=== PATIENT | female | born 1965 | race Caucasian/White ===

== ENCOUNTER 2022-01-24 14:55 | Day surgery (SDC) | payer OTHER, SELFPAY ==
[2022-01-24] VITALS (8 sets, daily range): BP systolic 124–148; BP diastolic 86–98; PULSE 62–79; RESP 14–26; TEMP 36.2–37.1; O2SAT 93–100; BMI 24.0
[2022-01-24 16:03] LABS: COVID19 -Nasal RAPID Negative (Negative)
--- NOTE | 2022-01-24 16:20 | PM.PREOP ---
Pre-operative Note COVID-19 COVID-19 status: Negative Result date/Date tested (Pos, Neg/Pending): 01/23/22 Criteria for continued procedure: Expected advancement of disease process, Possibility delay results in more complex future surgery or treatment, Increased loss of function, Continuing or worsening of significant or severe pain, Deterioration of the patient's condition or overall health and Delay expected to result in less-positive ultimate med/surg outcome Interval Note History & Physical reviewed/Exam performed by Physician: Yes Changes to H&P: No
[2022-01-24] MEDS: LACTATED RINGERS 1,000 ML 42 ML IV (16:23)
--- NOTE | 2022-01-24 16:27 | SUR.PREOP ---
01/24/22 -16:15-patient here for left elbow surgery. Reported ate breakfast-granola/half bannana/fruit and milk drink at 10:30am today. coat checker, Yessica notified & to clarify surgical time. Reported back after spoke with Anesthesia- will continue on with surgery at planned 1645 maria. 1630-Dr Ken here to see patient.
[2022-01-24] MEDS: CEFAZOLIN 2 GM/100 ML PREMIX 100 ML IV (17:00)
--- NOTE | 2022-01-24 17:00 | SUR.PREOP ---
01/24/[id number]-pylctu,Nadeem, called, aware MD signed /sent rx to [facility] in [facility] so that he can get it filled/picked up prior to discharge tonight. Hinojosa paper work in chart, but needs to be filled out-RN post op will complete. Updated patient just went into OR, maybe 2 hour surgery.
--- NOTE | 2022-01-24 17:36 | SUR.OPER ---
Lateral on a stewart bag, head on pillow, gel axillary roll in place, bottom leg bent with gel pad under knee to foot, upper leg straight and supported with pillows. Upper arm supported by pillows and secured over bottom arm to padded arm board. Safety belt at hip, tape over blanket lower legs.
[2022-01-24] MEDS: ACETAMINOPHEN IV 1,000 MG/100 ML VIAL 400 MG IV (17:42)
[2022-01-24] MEDS: BUPIVACAINE 0.5% W/ EPI (PF) 30 ML VIAL INJ (17:44)
--- NOTE | 2022-01-24 18:57 | PM.OP.1 ---
Operative Date/Time/Diagnoses Date of procedure: 01/24/22 Time of procedure: 16:40 Pre-op diagnosis: Left ulna Grade I open olecranon fracture Post-op diagnosis: same Procedure & Clinicians Procedure: 1. Open reduction internal fixation of left olecranon fracture with plate and screws 2. Irrigation and debridement of skin muscle and bone Same procedure as scheduled: Yes Indications: Ms. Naidu is a 56 yo F with open olecranon fracture when she was hiking in [facility]. She presented to our office this am requesting to be evaluated and treated for her injury. Her x-ray shows a comminuted displaced olecranon fracture over the left elbow. She was seen in the clinic and was found a have a non-contaminated wound with mild venous bleeding. After informed consent was obtained, patient was taken to the operating room emergently for her open elbow fracture since yesterday. Patient had I&D in the [facility] ER and was given antibiotics. Surgeon: Charan Ashby Vice President Business & Corporate Development: Akiko Segal Click Yes if Unassisted: No Anesthesia Type: General Operative Notes Closure Type: primary Specimen(s): none sent Prosthetic devices, grafts, tissues, transplants, or devices: Acuna and Nephew Olecranon locking plate, two locking screws, three non-locking screws Estimated Blood Loss (mL): 10 Blood products transfused: none Tourniquet time (min): 60 Procedure in detail: After patient was consented of risks and benefits of surgery, informed consent was obtained and placed in the chart. Patient was taken to the operating room. Prophylactic antibiotic was given less than half our prior to skin incision. Patient was placed into a lateral position with a stewart bag. After the positioning was confirmed patient is being bag was inflated. Patient had a axillary roll was placed underneath her arm on the right side. A tourniquet was placed on patient's left upper arm. Patient's left arm was prepped and draped in sterile fashion. Time-out was performed at this time. Patient's left arm was exsanguinated using the Esmarch and the tourniquet was inflated to 250 mm Hg. Marking pen was used to dylan out a 2 in incision over the left olecranon. The incision was made from proximal to the olecranon to distal down the arm away from the ulnar aspect of the elbow. A curved incision centered over patient's traumatic wound was made from distal humerus to proximal diaphysis of the left ulna. The fracture site was immediately visualized. There was significant amount of hematoma inside the soft tissue and the fracture site. Loose more fragments of bone and hematoma was debrided using copious amount of irrigation and small pickups. There are multiple areas of cartilaginous damage from the injury over the distal humerus without involvement of bony portion of the humerus. Several small fragments of bone inside the elbow joint was removed using small pituitary. The fracture site was cleaned using a small curette and irrigation. A 2 mm drill was used to drill on the distal portion of the ulna diaphysis. A small [id number] reduction clamp was used to reduce the fracture. Patient's proximal olecranon fracture fragment was found to be comminuted with 2 major pieces along with several small fragments that was not able to be stabilized individually. The 2 major piece was stabilized after reducing with [id number] clamp and held in place using the clamp. X-ray was taken to confirm the position of the plate and the reduced fracture. The fracture was well reduced with congruent elbow joint with minimum displacement or step-off at the elbow joint. The plate is a well fitted olecranon plate. A K-wire was used to stabilize the plate to patient's proximal fracture piece. A distal plate hole was drilled in off center fashion in order to compress the fracture and this was completed without any difficulty. After this nonlocking fully-threaded screw was placed into the diaphysis of the ulna with compression, 2 proximal locking screws were placed from the proximal portion of the plate after drilling and measuring with depth gauge. 45 and 48 mm locking screw was used. Two additional distal nonlocking screw was drilled and measured using a depth gauge. The wound measured 18 and 21 mm in length. After all the hardware was placed the reduction clamp and the K-wire was removed from the bone. The elbow was taken through range of motion which had full range of motion without any mechanical impedance. AP and lateral x-ray was taken of the left elbow which showed well placed hardware with well reduced fracture without displacement. The elbow joint was well reduced and stabilized using the hardware placed. At this time the wound was irrigated again copiously with sterile normal saline. The wound was then closed with 2-0 Vicryl and 3-0 nylon sutures. Sterile dressing was placed on patient's left arm. Tourniquet was deflated at this time. A posterior long-arm splint was placed on patient's arm in order to stabilize her soft tissue to allow proper healing. Additional stabilization is also provided due to her significantly comminuted fracture. Patient will be discharged to home with pain medication oral antibiotics. Patient will be instructed to follow-up in 2 weeks for suture removal and wound check. Patient tolerated the procedure well and there were no complications estimated blood loss is 10 cc. Complications: none Post-operative Condition: stable Disposition: PACU Plan for aftercare: Discharge to home
[2022-01-24] MEDS: hydrOXYzine 50 MG/ML INJ 25 MG IM (19:34)
[2022-01-24] MEDS: ONDANSETRON 4 MG/2 ML INJ IV ×2 (19:34→20:32)
[2022-01-24] MEDS: OXYCODONE IR 5 MG TABLET PO (19:34)
[2022-01-24] MEDS: METOCLOPRAMIDE 10 MG/2 ML INJ IV (19:51)
--- NOTE | 2022-01-25 | DI.RAD.S_ITS ---
PROCEDURE: XR ELBOW LT 2V INDICATIONS: LEFT ELBOW FRACTURE TECHNIQUE: 2 intraoperative fluoroscopic of the elbow were acquired. COMPARISON: [facility] Outside Film, CR, XR ELBOW 3+ VIEWS LEFT, 01/23/2022, 15:58. FINDINGS: Intraoperative fluoroscopic images of left elbow shows internal fixation of patient's known olecranon fracture with anatomic elbow alignment. IMPRESSION: Fluoro guidance was provided for ORIF of patient's known left olecranon fracture with anatomic elbow alignment. Dictated by: Billy Leahy M.D. on 01/25/2022 at 14:47 Approved by: Billy Leahy M.D. on 01/25/2022 at 14:48
== END 2022-01-24 20:32 | disposition home or self-care (01) ==
PROVIDERS: PCP Nurse Practitioner Family; Referring Provider Orthopaedic Surgery Orthopaedic Surgery of the Spine; Visit Provider Orthopaedic Surgery Orthopaedic Surgery of the Spine
PROC: 0RSM04Z Reposition Left Elbow Joint with Internal Fixation Device, Open Approach (ICD-10-PCS; principal; 2022-01-24 16:45)
DX: S52.022B Displaced fracture of olecranon process without intraarticular extension of left ulna, initial encounter for open fracture type I or II (principal); W18.30XA Fall on same level, unspecified, initial encounter; Y93.01 Activity, walking, marching and hiking; Y92.89 Other specified places as the place of occurrence of the external cause; Z20.822 Contact with and (suspected) exposure to COVID-19
CPT/HCPCS: 24685; 73070; 76000; 87635; C9803; J0131; J0690; J1100; J1170; J2250; J2405; J2704; J2765; J3010; J3410

== ENCOUNTER 2022-04-13 08:53 | Day surgery (SDC) | payer OTHER, SELFPAY ==
[2022-04-08 10:33] VITALS: BMI 24.0
[2022-04-13] VITALS (9 sets, daily range): BP systolic 111–143; BP diastolic 76–104; PULSE 59–69; RESP 10–16; TEMP 35.8–36.4; O2SAT 98–100; BMI 22.9
[2022-04-13] MEDS: LACTATED RINGERS 1,000 ML 120 ML IV (09:46)
[2022-04-13 09:52] LABS: COVID19 -Nasal RAPID Negative (Negative)
--- NOTE | 2022-04-13 10:01 | PM.PREOP ---
Pre-operative Note COVID-19 COVID-19 status: Negative Result date/Date tested (Pos, Neg/Pending): 04/12/22 Criteria for continued procedure: Expected advancement of disease process, Possibility delay results in more complex future surgery or treatment, Increased loss of function, Continuing or worsening of significant or severe pain, Deterioration of the patient's condition or overall health and Delay expected to result in less-positive ultimate med/surg outcome Interval Note History & Physical reviewed/Exam performed by Physician: Yes Changes to H&P: No
[2022-04-13] MEDS: CEFAZOLIN 2 GM/100 ML PREMIX 100 ML IV (10:30)
--- NOTE | 2022-04-13 10:50 | SUR.OPER ---
Supine on padded stretcher, head on pillow, Right arm at side with rail up, Left arm controlled by surgeon, legs uncrossed.
[2022-04-13] MEDS: BUPIVACAINE 0.5% (PF) VIAL 5 ML INJ (11:05)
--- NOTE | 2022-04-13 11:29 | PM.OP.1 ---
Operative Date/Time/Diagnoses Date of procedure: 04/13/22 Time of procedure: 10:30 Pre-op diagnosis: 1. Left ulna painful hardware Post-op diagnosis: same Procedure & Clinicians Procedure: 1. left ulna hardware removal Same procedure as scheduled: Yes Indications: Ms. Naidu is s/p ORIF of her left ulna olecranon fracture previously. Her fracture has healed and she has some clicking with range of motion to her left elbow. X-rays shows possible one screw tip in the radioulna joint causing this clicking senstation. After discussing with patient, patient elected to proceed with hardware removal of the involved screw from her ulna plate. Surgeon: Charan Ashby Click Yes if Unassisted: No Anesthesia Type: General Operative Notes Closure Type: primary Specimen(s): none sent Estimated Blood Loss (mL): 1 Blood products transfused: none Procedure in detail: After patient was consented of risks and benefits of surgery, informed consent was obtained and placed in the chart. Patient was taken to the operating room. Prophylactic antibiotic was given less than half our prior to skin incision. Patient's left arm was prepped and draped in sterile fashion. Time-out was performed at this time. Tourniquet was placed on patient's left upper arm but not inflated. A 2 cm incision was made along the proximal portion of the ulna shaft. Bovie was used to dissect down to the level of the hardware. Screwdriver for Acuna [employer] Nephew 3.5 mm shaft screw was used to remove the screw without any difficulty. C-arm imaging was taken to confirm removal of the hardware. And the hardware was removed without any residual issues. 2-0 Vicryl and 3-0 nylon suture was used to close patient's incision. A sterile dressing was applied the patient's left arm. Patient was woken up from IV sedation and was transferred to recovery room stable condition. There was no complications. Complications: none Post-operative Condition: stable Disposition: PACU Plan for aftercare: Discharge to home
== END 2022-04-13 12:03 | disposition home or self-care (01) ==
PROVIDERS: PCP Nurse Practitioner Family; Referring Provider Orthopaedic Surgery Orthopaedic Surgery of the Spine; Visit Provider Orthopaedic Surgery Orthopaedic Surgery of the Spine
PROC: (CPT 20680; principal; 2022-04-13 10:15)
DX: T84.84XA Pain due to internal orthopedic prosthetic devices, implants and grafts, initial encounter (principal); M25.522 Pain in left elbow; Z20.822 Contact with and (suspected) exposure to COVID-19
CPT/HCPCS: 20680; 87635; C9803; J0690; J2250; J3010